=== PATIENT | female | born 1975 | race Caucasian/White ===

== ENCOUNTER 2017-05-27 16:17 | Emergency (ER) | payer SELFPAY ==
[~2017-05-27] VITALS: Ht 149.9 cm; Wt 61.2 kg
[2017-05-27 17:02] VITALS: BP 102/86
--- NOTE | 2017-05-27 17:59 | NUR ---
Patient to bed 08.
--- NOTE | 2017-05-27 18:02 | NUR ---
Patient being taken to US via wheelchair per tech.
--- NOTE | 2017-05-27 18:29 | NUR ---
Patient back from [facility] via wheelchair per tech.
--- NOTE | 2017-05-27 18:29 | NUR ---
Pt returned from [place] via w/c.
--- NOTE | 2017-05-27 18:36 | NUR ---
41/F c/o right leg pain for the past 2-3 days. Pt states "I'm not sure if I hurt it or not. I really don't know." Pt c/o numbness, shooting pain down right leg, pt states "it's the whole leg." 09/08. Pt states she took ibuprofen this morning with no relief of pain. AOX4, ambulates with steady gait. No swelling noted. VSS.
--- NOTE | 2017-05-27 18:40 | NUR ---
Lab at bedside for blood draw.
[2017-05-27 18:55] LABS: HEMATOCRIT 40.5 % (36-48); HEMOGLOBIN 13.7 g/dL (12.0-16.0)
--- NOTE | 2017-05-27 19:28 | NUR ---
Pt report given to Edi BRAGG. Transfer of care at this time.
[2017-05-27] MEDS ORDERED: ONDANSETRON 4 MG ODT PO ONE (19:45)
[2017-05-27] MEDS ORDERED: IBUPROFEN 600 MG TAB PO ONE (19:45)
[2017-05-27] MEDS ORDERED: HYDROcodone/APAP 5/325 MG 1 TAB TAB PO ONE (19:45)
[2017-05-27 20:00] VITALS: BP 109/64
--- NOTE | 2017-05-27 20:00 | NUR ---
Patient discharged with v/s stable. Written and verbal after care instructions given and explained. Patient alert, oriented and verbalized understanding of instructions. Ambulatory with steady gait. All questions addressed prior to discharge. ID band removed. Patient advised to follow up with PMD. Rx of zofran and norco given. Patient educated on indication of medication including possible reaction and side effects. Opportunity to ask questions provided and answered.
== END 2017-05-27 20:00 | disposition home or self-care (01) ==
LOC: MED 16:17
DX: S93.491A Sprain of other ligament of right ankle, initial encounter (principal); F17.200 Nicotine dependence, unspecified, uncomplicated; X58.XXXA Exposure to other specified factors, initial encounter; Y93.89 Activity, other specified; Y92.89 Other specified places as the place of occurrence of the external cause; Y99.8 Other external cause status
CPT/HCPCS: 36415; 71020; 84484; 85018; 93005; 93971; 99285